=== PATIENT | female | born 1985 | race Caucasian/White ===

== ENCOUNTER → 2021-05-29 | Outpatient (CLI) | payer OTHER ==
--- NOTE | 2021-05-29 12:25 | CT ---
EXAMINATION TYPE: CT pelvis wo/w con DATE OF EXAM: 05/29/2021 COMPARISON: None HISTORY: rlq pain CT DLP: 1984 mGycm Automated exposure control for dose reduction was used. Unenhanced followed by contrast enhanced CT o f the pelvis was performed. CONTRAST: Performed with IV Contrast, patient injected with 100 mL of Isovue 300. FINDINGS: There is normal appearing appendix. No inflammatory changes identified. Visualized bowel loops are of normal caliber. Visualized portions of the liver spleen adrenal glands kidneys and pancreas are rajani sly unremarkable. Abdominal aorta is of normal caliber. Uterus and ovaries are within normal limits. No evidence for pelvic mass or free fluid. IMPRESSION: UNREMARKABLE STUDY.
== END | disposition home or self-care (01) ==
LOC: RADCTMAIN 10:01
PROVIDERS: ATTEND Family Medicine
DX: R10.31 Right lower quadrant pain (principal)
CPT/HCPCS: 72194; Q9967

== ENCOUNTER 2021-07-23 13:25 | Emergency (ER) | payer OTHER ==
[2021-07-23 13:42] VITALS: BP 114/75; PULSE 88; RESP 16; TEMP 97.3
--- NOTE | 2021-07-23 14:50 | XR ---
EXAMINATION TYPE: XR foot complete RT DATE OF EXAM: 07/23/2021 COMPARISON: 01/23/2014 HISTORY: Pain TECHNIQUE: Three views are submitted. FINDINGS: There is a mildly displaced fracture involving the shaft of the fourth metatarsal. Severe arthropathy of the tarsometatarsal junction of the second and third digits are noted with evidence of remote fra cture involving the fifth metatarsal. Calcaneal spurs are seen. Additional previous remote fracture s haft fourth metatarsal. Suspect for previous remote fractures involving the base of the second and th ird metatarsals which are nonunion. IMPRESSION: 1. Acute fracture shaft fourth metatarsal. 2. Severe arthropathy tarsometatarsal junction with remote fractures as discussed above.
[2021-07-23] MEDS ORDERED: IBUPROFEN 800 MG TAB PO STA (16:03)
--- NOTE | 2021-07-23 16:05 | ED ---
Lower Extremity Injury HPI - General Chief Complaint: Extremity Injury, Lower Stated Complaint: [facility] Rt foot injury Source: patient Mode of arrival: wheelchair Limitations: no limitations - History of Present Illness Initial Comments: 35-year-old female presents emergency Department with right foot pain. States that she tripped at work and hit her foot on a bench after rolling it. She was wearing large rubber boots however still sustained injury. She was unable to weight-bear after the incident. Patient had episode while at work. Eyes any additional injuries. Patient is previously broken that foot before during a similar injury. States that she follow [facility] for [facility]. Denies any knee or hip pain. No other alleviating, precipitating modifying factors - Related Data Home Medications Medication Instructions Recorded Confirmed Levothyroxine Sodium [Synthroid] 75 mcg PO DAILY 07/23/21 07/23/21 Previous Rx's Medication Instructions Recorded Ibuprofen [Motrin] 800 mg PO Q8HR #20 tab 07/23/21 Allergies Allergy/AdvReac Type Severity Reaction Status Date / Time No Known Allergies Allergy Verified 07/23/21 15:21 Review of Systems ROS Statement: Those systems with pertinent positive or pertinent negative responses have been documented in the HPI. ROS Other: All systems not noted in ROS Statement are negative. Past Medical History Past Medical History: Asthma, Thyroid Disorder Additional Past Medical History / Comment(s): Low white blood cell count, pneumonia, hypothyroidism, wounds on legs History of Any Multi-Drug Resistant Organisms: None Reported Past Surgical History: Section Additional Past Surgical History / Comment(s): right great toe, Past Anesthesia/Blood Transfusion Reactions: No Reported Reaction Past Psychological History: No Psychological Hx Reported Smoking Status: Never smoker Past Alcohol Use History: None Reported Past Drug Use History: None Reported - Past Family History Mother Family Medical History: Osteoarthritis (OA) Sister(s) Family Medical History: No Reported History General Exam Limitations: no limitations General appearance: alert, in no apparent distress Head exam: Present: atraumatic, normocephalic, normal inspection Eye exam: Present: normal appearance, PERRL, EOMI. Absent: scleral icterus, conjunctival injection, periorbital swelling ENT exam: Present: normal exam, mucous membranes moist Neck exam: Present: normal inspection. Absent: tenderness, meningismus, lymphadenopathy Respiratory exam: Present: normal lung sounds bilaterally. Absent: respiratory distress, wheezes, rales, rhonchi, stridor Cardiovascular Exam: Present: regular rate, normal rhythm, normal heart sounds. Absent: systolic murmur, diastolic murmur, rubs, gallop, clicks GI/Abdominal exam: Present: soft, normal bowel sounds. Absent: distended, tenderness, guarding, rebound, rigid Extremities exam: Present: tenderness (right dorsal foot over the metatarsals. associated swelling without obvious deformity cap refill <3 seconds), normal capillary refill, pedal edema. Absent: joint swelling, calf tenderness Back exam: Present: normal inspection Neurological exam: Present: alert, oriented X3, CN II-XII intact Psychiatric exam: Present: normal affect, normal mood Skin exam: Present: warm, dry, intact, normal color. Absent: rash Course Vital Signs 07/23/21 13:39 Temperature 97.3 F L Pulse Rate 88 Respiratory 16 Rate Blood Pressure 114/75 O2 Sat by Pulse 97 Oximetry Procedures - Orthopedic Splinting/Casting Injury #1 Side: right Lower Extremity Injury Location: short leg Lower Extremity Immobilizer: Candido wrap, synthetic pre-padded splint Other Orthopedic Equipment: crutches Medical Decision Making - Medical Decision Making Upon arrival patient is placed into hallway 10. A thorough history of physical exam was performed. X-ray had been performed patient's right foot which demonstrates a fourth metatarsal fracture. This is an acute injury while the patient has remote fractures of the second, third and fifth metatarsal. Patient is offered something for pain control. She does accept Motrin. Patient is placed in a short leg cast and requested to not weight bear. Patient is to [facility] with [facility] management. Requested that she ice, elevate and rest the extremity. Return for any new or worsening symptoms. Patient agreed to this plan and was discharged in stable condition Disposition Clinical Impression: Right foot pain, Fall, Metatarsal fracture Disposition: HOME SELF-CARE Condition: Stable Instructions (If sedation given, give patient instructions): Foot Fracture in Adults (ED) Additional Instructions: Please rest, ice and elevate the extremity. Take Motrin and Tylenol alternating for pain control. [facility] for [facility] management. Use crutches and do not weight-bear until they placed you in a walking boot or cast Prescriptions: Ibuprofen [Motrin] 800 mg PO Q8HR #20 tab Is patient prescribed a controlled substance at d/c from ED?: No Referrals: Javier Manzo DO [Primary Care Provider] - 1-2 days Peterson Forbes MD [Medical Doctor] - 1-2 days Time of Disposition: 16:04
== END 2021-07-23 16:40 | disposition home or self-care (01) ==
LOC: EC 13:25
DX: S92.341A Displaced fracture of fourth metatarsal bone, right foot, initial encounter for closed fracture (principal); J45.909 Unspecified asthma, uncomplicated; E07.9 Disorder of thyroid, unspecified; W01.10XA Fall on same level from slipping, tripping and stumbling with subsequent striking against unspecified object, initial encounter; Y99.0 Civilian activity done for income or pay
CPT/HCPCS: 99283

== ENCOUNTER → 2021-07-26 | Outpatient (CLI) | payer OTHER ==
--- NOTE | 2021-07-26 16:50 | CT ---
EXAMINATION TYPE: CT foot RT wo con DATE OF EXAM: 07/26/2021 COMPARISON: X-ray dated 07/23/2021 HISTORY: RT foot 3rd and 4th metatarsal fx/ abnormalities CT DLP: 199 mGycm Automated exposure control for dose reduction was used. TECHNIQUE: Multiplanar CT scan of the right foot without IV contrast administration. 3-D reconstructi on images were generated on a separate workstation and reviewed. FINDINGS: Acute nondisplaced fracture of the proximal diaphysis the fourth metatarsal bone. More distal chronic healed fracture of the fourth metatarsal bone. Another chronic healed fracture is seen at the proxim al diaphysis of the fifth metatarsal bone. Chronic nonhealed fractures of the proximal diaphyses of the second and third metatarsal bone which c an be appreciated back to 2014 x-ray, with hypertrophy at the fracture sites, pseudoarticulation, scl erotic changes and cyst formation at the fracture ends. Apparently intact tarsometatarsal articulations without evidence of significant degenerative changes or dislocation/subluxation. Mild degenerative changes of the first metatarsophalangeal joint. Posterior calcaneal enthesophyte at the insertion of the Achilles tendon. Grossly unremarkable intert arsal articulations. Unremarkable ankle mortise with a smooth talar dome. No sizable ankle joint effu anel. IMPRESSION: Acute, chronic healed and chronic nonhealed fractures of the metatarsal bones as detailed above. Jaylen mmend clinical correlation and orthopedic consultation. Further bone scan/gallium scan assessment can be considered. Other findings as described above.
== END | disposition home or self-care (01) ==
LOC: RADCTMAIN 15:54
PROVIDERS: ATTEND Orthopaedic Surgery
DX: S92.344A Nondisplaced fracture of fourth metatarsal bone, right foot, initial encounter for closed fracture (principal); S92.321K Displaced fracture of second metatarsal bone, right foot, subsequent encounter for fracture with nonunion; S92.331K Displaced fracture of third metatarsal bone, right foot, subsequent encounter for fracture with nonunion; Y99.9 Unspecified external cause status

== ENCOUNTER 2023-10-03 17:53 | Emergency (ER) | payer BC, OTHER ==
[2023-10-03 18:15] VITALS: TEMP 98.5
--- NOTE | 2023-10-03 18:50 | ED ---
Abdominal Pain HPI - General Source: patient, RN notes reviewed Mode of arrival: ambulatory Limitations: no limitations <Milana Boateng - Last Filed: 10/03/23 18:49> <Connie Conde - Last Filed: 10/04/23 04:29> - General Chief Complaint: Abdominal Pain Stated Complaint: Pain in R side Time Seen by Provider: 10/03/23 18:49 - History of Present Illness Initial Comments: Quick [id number] female presenting with right-sided abdominal pain x 2 days with bodyaches, chills, and nausea. States the bumps in the car on the way here exacerbate the pain. She has a history of C-sections however denies any other abdominal surgeries. (Milana Boateng) 38-year-old female presenting with chief complaint of abdominal pain. Pain is located in the right upper quadrant. This is a sharp and stabbing pain. Pain has been ongoing for the last 2 days. She has had a decreased appetite as well. Admits to nausea with no vomiting. Surgical history includes C-sections. No fevers. No chest pain or difficulty breathing. No injury. No dysuria or hematuria. (Connie Conde) - Related Data Home Medications Medication Instructions Recorded Confirmed Levothyroxine Sodium [Synthroid] 75 mcg PO DAILY 07/23/21 07/23/21 Previous Rx's Medication Instructions Recorded Ibuprofen [Motrin] 800 mg PO Q8HR #20 tab 07/23/21 Ondansetron Odt [Zofran Odt] 4 mg PO Q8HR PRN #20 tab 10/03/23 traMADol HCl [Ultram] 50 mg PO Q4HR PRN 3 Days #18 tab 10/03/23 Allergies Allergy/AdvReac Type Severity Reaction Status Date / Time No Known Allergies Allergy Verified 10/03/23 18:08 Review of Systems ROS Other: All systems not noted in ROS Statement are negative. <Milana Boateng - Last Filed: 10/03/23 18:49> ROS Other: All systems not noted in ROS Statement are negative. <Connie Conde - Last Filed: 10/04/23 04:29> ROS Statement: Those systems with pertinent positive or pertinent negative responses have been documented in the HPI. Past Medical History Past Medical History: Asthma, Thyroid Disorder Additional Past Medical History / Comment(s): Low white blood cell count, pneumonia, hypothyroidism, wounds on legs History of Any Multi-Drug Resistant Organisms: None Reported Past Surgical History: Section Additional Past Surgical History / Comment(s): right great toe, Past Anesthesia/Blood Transfusion Reactions: No Reported Reaction Past Psychological History: No Psychological Hx Reported Smoking Status: Never smoker Past Alcohol Use History: Occasional Past Drug Use History: None Reported - Past Family History Mother Family Medical History: Osteoarthritis (OA) Sister(s) Family Medical History: No Reported History <Milana Boateng - Last Filed: 10/03/23 18:49> General Exam Limitations: no limitations <Milana Boateng - Last Filed: 10/03/23 18:49> General appearance: alert, in no apparent distress Head exam: Present: atraumatic, normocephalic Eye exam: Present: normal appearance, EOMI Neck exam: Present: normal inspection. Absent: meningismus Respiratory exam: Present: normal lung sounds bilaterally. Absent: respiratory distress, wheezes, rales, rhonchi, stridor Cardiovascular Exam: Present: regular rate, normal rhythm, normal heart sounds. Absent: systolic murmur, diastolic murmur, rubs, gallop, clicks GI/Abdominal exam: Present: soft, tenderness (Right upper quadrant). Absent: distended, guarding, rebound, rigid Neurological exam: Present: alert, oriented X3 Psychiatric exam: Present: normal affect, normal mood Skin exam: Present: normal color <Connie Conde - Last Filed: 10/04/23 04:29> - General Exam Comments Initial Comments: Visual Physical Exam Vital signs reviewed General: Well-appearing, nontoxic, no acute distress. Head: Normocephalic, atraumatic Eyes: PERRLA, EOMI ENT: Airway patent Chest: Nonlabored breathing Skin: No visual rash, normal skin tone Neuro: Alert and oriented 3 Musculoskeletal: No gross abnormalities (Milana Boateng) Course Vital Signs 10/03/23 10/03/23 10/03/23 18:05 21:00 22:06 Temperature 98.5 F Pulse Rate 104 H 86 83 Respiratory 18 18 16 Rate Blood Pressure 130/84 116/70 101/61 O2 Sat by Pulse 97 96 97 Oximetry Medical Decision Making <Milana Boateng - Last Filed: 10/03/23 18:49> - Lab Data Result diagrams: 10/03/23 20:21 10/03/23 20:21 <EltonSamtodd - Last Filed: 10/04/23 04:29> - Medical Decision Making I completed the quick note portion of this chart signed Milana Boateng PA-C (Milana Boateng) Was pt. sent in by a medical professional or institution (, PA, MINE MOTOR ENGINEER, urgent care, hospital, or [place] health care facility...) When possible be specific @ -No Did you speak to anyone other than the patient for history (EMS, parent, family, police, friend...)? What history was obtained from this source @ -No Did you review nursing and triage notes (agree or disagree)? Why? @ -I reviewed and agree with nursing and triage notes Were old charts reviewed (outside hosp., previous admission, EMS record, old EKG, old radiological studies, urgent care reports/EKG's, [place] health care facility records)? Report findings @ -No old charts were reviewed Differential Diagnosis (chest pain, altered mental status, abdominal pain women, abdominal pain men, vaginal bleeding, weakness, fever, dyspnea, syncope, headache, dizziness, GI bleed, back pain, seizure, CVA, palpatations, mental health, musculoskeletal)? @ -MDM Differential Abdominal Pain Women: Appendicitis, Cholecystitis, diverticulosis, ischemic bowel, pancreatitis, hepatitis, UTI, gastroenteritis, AAA, incarcerated hernia, bowel obstruction, constipation, inflammatory bowel, hepatitis, peptic ulcer disease, splenic infarction, perforated viscus, vulvitis, ovarian torsion, PID, kidney stone, placenta abruption... This is not meant to be an all-inclusive list EKG interpreted by me (3pts min.). @ -As above X-rays interpreted by me (1pt min.). @ -None done CT interpreted by me (1pt min.). @ -None done U/S interpreted by me (1pt. min.). @ -Ultrasound shows no evidence for acute abdominal process. Hepatic steatosis. What testing was considered but not performed or refused? (CT, X-rays, U/S, labs)? Why? @ -None What meds were considered but not given or refused? Why? @ -None Did you discuss the management of the patient with other professionals (professionals i.e. , PA, MINE MOTOR ENGINEER, lab, RT, psych nurse, vp digital marketing social media and crm, sustainable agriculture specialist, teacher, customs and immigration officer, bottle caser)? Give summary @ -No Was smoking cessation discussed for >3mins.? @ -No Was critical care preformed (if so, how long)? @ -No Were there social determinants of health that impacted care today? How? (Homelessness, low income, unemployed, alcoholism, drug addiction, transportation, low edu. Level, literacy, decrease access to med. care, nursing home, rehab)? @ -No Was there de-escalation of care discussed even if they declined (Discuss DNR or withdrawal of care, Hospice)? DNR status @ -No What co-morbidities impacted this encounter? (DM, HTN, Smoking, COPD, CAD, Cancer, CVA, ARF, Chemo, Hep., AIDS, mental health diagnosis, sleep apnea, morbid obesity)? @ -None Was patient admitted / discharged? Hospital course, mention meds given and route, prescriptions, significant lab abnormalities, going to OR and other pertinent info. @ -38-year-old female presenting with chief complaint of right upper quadrant pain. On exam patient does have tenderness in the right upper quadrant, no tenderness in the right lower quadrant. Lab work shows no leukocytosis or anemia. Urine shows no infectious process. Negative hCG. Ultrasound shows no acute abdominal process. On reassessment the patient reports resolution of her symptoms. Educated on today's findings and biliary colic. Follow-up with GI or surgery. Discharged home. Follow-up with PCP. Report back to ER with any new or worsening symptoms. Discussed return parameters and answered all questions. Patient conveyed verbal understanding and agreed to the plan. I discussed this case in detail with my attending Dr. Swift Undiagnosed new problem with uncertain prognosis? @ -No Drug Therapy requiring intensive monitoring for toxicity (Heparin, Nitro, Insulin, Cardizem)? @ -No Were any procedures done? @ -No Diagnosis/symptom? @ -Abdominal pain Acute, or Chronic, or Acute on Chronic? @ -Acute Uncomplicated (without systemic symptoms) or Complicated (systemic symptoms)? @ -Uncomplicated Side effects of treatment? @ -No Exacerbation, Progression, or Severe Exacerbation? @ -No Poses a threat to life or bodily function? How? (Chest pain, USA, CT, pneumonia, PE, COPD, DKA, ARF, appy, cholecystitis, CVA, Diverticulitis, Homicidal, Suicidal, threat to staff... and all critical care pts) @ -Unlikely (Connie Conde) - Lab Data Lab Results 10/03/23 10/03/23 10/03/23 Range/Units 20:21 20:21 20:21 WBC 5.4 (3.8-10.6) k/uL RBC 4.98 (3.80-5.40) m/uL Hgb 14.3 (11.4-16.0) gm/dL Hct 42.5 (34.0-46.0) % MCV 85.4 (80.0-100.0) fL MCH 28.7 (25.0-35.0) pg MCHC 33.6 (31.0-37.0) g/dL RDW 12.5 (11.5-15.5) % Plt Count 235 (150-450) k/uL MPV 7.7 Neutrophils % 43 % Lymphocytes % 39 % Monocytes % 13 % Eosinophils % 1 % Basophils % 1 % Neutrophils # 2.3 (1.3-7.7) k/uL Lymphocytes # 2.1 (1.0-4.8) k/uL Monocytes # 0.7 (0-1.0) k/uL Eosinophils # 0.0 (0-0.7) k/uL Basophils # 0.1 (0-0.2) k/uL Sodium 135 L (137-145) mmol/L Potassium 4.0 (3.5-5.1) mmol/L Chloride 104 (98-107) mmol/L Carbon Dioxide 23 (22-30) mmol/L Anion Gap 8 mmol/L BUN 9 (7-17) mg/dL Creatinine 0.72 (0.52-1.04) mg/dL Est GFR (CKD-EPI)AfAm >90 (>60 ml/min/1.73 sqM) Est GFR (CKD-EPI)NonAf >90 (>60 ml/min/1.73 sqM) Glucose 93 (74-99) mg/dL Plasma Lactic Acid Zaki (0.7-2.0) mmol/L Calcium 9.0 (8.4-10.2) mg/dL Total Bilirubin 0.8 (0.2-1.3) mg/dL AST 24 (14-36) U/L ALT 19 (4-34) U/L Alkaline Phosphatase 67 (38-126) U/L Total Protein 6.9 (6.3-8.2) g/dL Albumin 4.0 (3.5-5.0) g/dL Lipase 49 (23-300) U/L Urine Color Yellow Urine Appearance Clear (Clear) Urine pH 6.0 (5.0-8.0) Ur Specific Lund 1.026 (1.001-1.035) Urine Protein Trace H (Negative) Urine Glucose (UA) Negative (Negative) Urine Ketones 2+ H (Negative) Urine Blood Negative (Negative) Urine Nitrite Negative (Negative) Urine Bilirubin Negative (Negative) Urine Urobilinogen <2.0 (<2.0) mg/dL Ur Leukocyte Esterase Moderate H (Negative) Urine RBC 1 (0-5) /hpf Urine WBC 2 (0-5) /hpf Ur Squamous Epith Cells 4 (0-4) /hpf Urine Bacteria Rare H (None) /hpf Urine Mucus Few H (None) /hpf Urine HCG, Qual (Not Detectd) 10/03/23 10/03/23 Range/Units 20:21 20:21 WBC (3.8-10.6) k/uL RBC (3.80-5.40) m/uL Hgb (11.4-16.0) gm/dL Hct (34.0-46.0) % MCV (80.0-100.0) fL MCH (25.0-35.0) pg MCHC (31.0-37.0) g/dL RDW (11.5-15.5) % Plt Count (150-450) k/uL MPV Neutrophils % % Lymphocytes % % Monocytes % % Eosinophils % % Basophils % % Neutrophils # (1.3-7.7) k/uL Lymphocytes # (1.0-4.8) k/uL Monocytes # (0-1.0) k/uL Eosinophils # (0-0.7) k/uL Basophils # (0-0.2) k/uL Sodium (137-145) mmol/L Potassium (3.5-5.1) mmol/L Chloride (98-107) mmol/L Carbon Dioxide (22-30) mmol/L Anion Gap mmol/L BUN (7-17) mg/dL Creatinine (0.52-1.04) mg/dL Est GFR (CKD-EPI)AfAm (>60 ml/min/1.73 sqM) Est GFR (CKD-EPI)NonAf (>60 ml/min/1.73 sqM) Glucose (74-99) mg/dL Plasma Lactic Acid Zaki 0.8 (0.7-2.0) mmol/L Calcium (8.4-10.2) mg/dL Total Bilirubin (0.2-1.3) mg/dL AST (14-36) U/L ALT (4-34) U/L Alkaline Phosphatase (38-126) U/L Total Protein (6.3-8.2) g/dL Albumin (3.5-5.0) g/dL Lipase (23-300) U/L Urine Color Urine Appearance (Clear) Urine pH (5.0-8.0) Ur Specific Lund (1.001-1.035) Urine Protein (Negative) Urine Glucose (UA) (Negative) Urine Ketones (Negative) Urine Blood (Negative) Urine Nitrite (Negative) Urine Bilirubin (Negative) Urine Urobilinogen (<2.0) mg/dL Ur Leukocyte Esterase (Negative) Urine RBC (0-5) /hpf Urine WBC (0-5) /hpf Ur Squamous Epith Cells (0-4) /hpf Urine Bacteria (None) /hpf Urine Mucus (None) /hpf Urine HCG, Qual Not Detected (Not Detectd) Disposition <Milana Boateng - Last Filed: 10/03/23 18:49> Is patient prescribed a controlled substance at d/c from ED?: Yes When asked, does pt state using other controlled substances?: No If prescribed controlled substance>3 days was MAPS reviewed?: Prescribed <3 Days If opioid is for acute pain is fill amount 7 days or less?: Yes Time of Disposition: 22:35 <Connie Conde - Last Filed: 10/04/23 04:29> Clinical Impression: Abdominal pain Disposition: HOME SELF-CARE Condition: Good Instructions (If sedation given, give patient instructions): Non-Alcoholic Fatty Liver Disease (ED), Abdominal Pain (ED) Additional Instructions: Follow-up with PCP and GI. Report back to ER with any new or worsening symptoms. Prescriptions: traMADol HCl [Ultram] 50 mg PO Q4HR PRN 3 Days #18 tab PRN Reason: Pain Ondansetron Odt [Zofran Odt] 4 mg PO Q8HR PRN #20 tab PRN Reason: Nausea Referrals: Javier Manzo DO [Primary Care Provider] - 1-2 days Ramonita Tan MD [STAFF PHYSICIAN] - 1-2 days Kishan Paulino MD [STAFF PHYSICIAN] - 1-2 days
[2023-10-03 20:29] LABS: Basophils # (A) 0.1 k/uL (0-0.2); Basophils % (A) 1 %; Eosinophils % (A) 1 %; HCT 42.5 % (34.0-46.0); HGB 14.3 gm/dL (11.4-16.0); Lymphocytes # (A) 2.1 k/uL (1.0-4.8); Lymphocytes % (A) 39 %; MCH 28.7 pg (25.0-35.0); MCHC 33.6 g/dL (31.0-37.0); MCV 85.4 fL (80.0-100.0); Mean Platelet Volume 7.7; Monocytes # (A) 0.7 k/uL (0-1.0); Monocytes % (A) 13 %; Neutrophils # (A) 2.3 k/uL (1.3-7.7); Neutrophils % (A) 43 %; Platelet Count 235 k/uL (150-450); RBC 4.98 m/uL (3.80-5.40); RDW 12.5 % (11.5-15.5); WBC 5.4 k/uL (3.8-10.6)
[2023-10-03 20:35] LABS: Appearance,Urine Clear (Clear); Bacteria,Urine Rare /hpf; Bilirubin,Urine Negative (Negative); Blood,Urine Negative (Negative); Color,Urine Yellow; Glucose,Urine (UA) Negative (Negative); Leukocyte Esterase,Urine Moderate (Negative); Mucus,Urine Few /hpf; Nitrite,Urine Negative (Negative); Protein,Urine Trace (Negative); RBC,Urine 1 /hpf (0-5); Specific Gravity,Urine 1.026 (1.001-1.035); Squamous Epithelial Cell,Urine 4 /hpf (0-4); Urobilinogen,Urine <2.0 mg/dL (<2.0); WBC,Urine 2 /hpf (0-5)
[2023-10-03 20:38] LABS: Ketones,Urine 2+ (Negative)
[2023-10-03 20:40] LABS: ALT 19 U/L (4-34); AST 24 U/L (14-36); African American GFR (CKD) >90 (>60 ml/min/1.73 sqM); Alkaline Phosphatase 67 U/L (38-126); Anion Gap 8 mmol/L; Blood Urea Nitrogen 9 mg/dL (7-17); Carbon Dioxide 23 mmol/L (22-30); Chloride 104 mmol/L (98-107); Glucose 93 mg/dL (74-99); Lipase 49 U/L (23-300); Non-African American GFR(CKD) >90 (>60 ml/min/1.73 sqM); Sodium 135 mmol/L (137-145); Total Bilirubin 0.8 mg/dL (0.2-1.3); Total Protein 6.9 g/dL (6.3-8.2)
[2023-10-03] MEDS: ONDANSETRON 4 MG/2 ML VIAL IVP STA (21:03)
[2023-10-03] MEDS: HYDROmorphone 1 MG/ML 1 ML SYRINGE IVP STA (21:03)
--- NOTE | 2023-10-03 21:50 | US ---
EXAMINATION TYPE: US abdomen limited DATE OF EXAM: 10/03/2023 COMPARISON: NONE CLINICAL INDICATION: Female, 38 years old with history of RUQ pain; pain TECHNIQUE: Multiple sonographic images of the right upper quadrant are obtained. FINDINGS: EXAM MEASUREMENTS: Liver Length: 17.3 cm Gallbladder Wall: .3 cm CBD: .6 cm Right Kidney: 10.5 x 3.9 x 4.2 cm Pancreas: Obscured by bowel gas Liver: Increased attenuation Gallbladder: No stones seen Evidence for sonographic Crowe's sign: No CBD: wnl Right Kidney: No hydronephrosis or masses seen IMPRESSION: 1. No evidence for acute abdominal process. 2. Hepatic steatosis.
[2023-10-03 22:45] VITALS: BP 101/61; PULSE 83; RESP 16
== END 2023-10-03 22:51 | disposition home or self-care (01) ==
LOC: EC 17:53
DX: R10.11 Right upper quadrant pain (principal)
CPT/HCPCS: 36415; 80053; 83605; 83690; 85025; 81001; 81025; 76705; 99284; 96374; 96375; J2405; J1170